=== PATIENT | female | born 1990 | race Caucasian/White ===

== ENCOUNTER 2016-10-05 10:00 | Emergency (ER) | payer MEDICAID ==
[~2016-10-05] VITALS: Ht 172.7 cm; Wt 114.4 kg
[2016-10-05 12:21] VITALS: BP 136/84
== END 2016-10-05 12:21 | disposition home or self-care (01) ==
LOC: ED 10:00
DX: S92.512A Displaced fracture of proximal phalanx of left lesser toe(s), initial encounter for closed fracture (principal); W22.8XXA Striking against or struck by other objects, initial encounter; Y93.89 Activity, other specified; Y99.8 Other external cause status; Y92.89 Other specified places as the place of occurrence of the external cause

== ENCOUNTER 2017-01-06 00:25 | Emergency (ER) | payer MEDICAID ==
[2017-01-06 00:30] VITALS: BP 127/94
== END 2017-01-06 01:31 | disposition left against medical advice (07) ==
LOC: ED 00:25
DX: Z53.21 Procedure and treatment not carried out due to patient leaving prior to being seen by health care provider (principal)

== ENCOUNTER 2018-04-24 22:16 | Emergency (ER) | payer MEDICAID ==
[~2018-04-24] VITALS: Ht 172.7 cm; Wt 94.3 kg
[2018-04-24 22:23] VITALS: Ht 172.7 cm; Wt 94.3 kg
[2018-04-25 00:04] LABS: microscopic required? YES; urine erythrocyte 1+ (NEGATIVE)
[2018-04-25 01:44] VITALS: BP 118/68
== END 2018-04-25 01:44 | disposition home or self-care (01) ==
LOC: ED 22:16
PROVIDERS: Emergency Medicine
DX: O23.41 Unspecified infection of urinary tract in pregnancy, first trimester (principal); R51 Headache; Z3A.08 8 weeks gestation of pregnancy
CPT/HCPCS: J0696; J2765; J7030; Q0163